=== PATIENT | female | born 1985 | race Asian ===

== ENCOUNTER 2018-08-25 11:56 | Inpatient (IN) | payer OTHER ==
[~2018-08-25] VITALS: Ht 144.8 cm; Wt 50.8 kg
[2018-08-25 12:00] VITALS: BP 84/53
--- NOTE | 2018-08-25 12:07 | NUR ---
pt amb to er bed 3 w/o asst
[2018-08-25] MEDS ORDERED: PREN-380 PO (12:13)
--- NOTE | 2018-08-25 12:13 | NUR ---
er at bedside
--- NOTE | 2018-08-25 12:21 | NUR ---
PT AMBULATED TO RESTROOM AND BACK TO [facility] WITH STEADY GAIT. UNABLE TO PROVIDE URINE SPECIMEN AT THIS TIME.
--- NOTE | 2018-08-25 12:28 | NUR ---
BIB FAMILY C/O HEAVY BRIGHT RED VAGINAL BLEEDING X THIS AM PT HAS USED 2 PADS TODAY. PT STS APPROX 12-13 WEEKS GESTATION. FAMILY STS "A BABY CAME OUT, LOOKED LIKE TWO INCHES." G2, P0, TAB1, SAB 0. LMP 05/19/18. PT A&OX4, BREATHING EVEN AND UNLABORED, LUNG SOUNDS CTAB, NSR ON MONITOR, SKIN PALE, WARM, AND DRY. C/O BILAT LOWER QUADRANT ABD PAIN, "NOT BAD THIS MORNING."
--- NOTE | 2018-08-25 12:28 | NUR ---
ULTRASOUND AT BEDSIDE.
--- NOTE | 2018-08-25 12:42 | NUR ---
LAB AT BEDSIDE TO DRAW BLOOD.
[2018-08-25 13:15] LABS: HEMATOCRIT 38.2 % (36-48); HEMOGLOBIN 12.4 g/dL (12.0-16.0); MEAN CORPUSCULAR HEMOGLOBIN 29 pg (27-31); MEAN CORPUSCULAR HGB CONC 33 g/dL (33-37); MEAN CORPUSCULAR VOLUME 89.3 fL (80-94); PLATELET COUNT (AUTO) 394 K/uL (140-450); RED BLOOD CELL COUNT(AUTO) 4.28 MIL/uL (4.20-5.40); RED CELL DISTRIBUTION WIDTH 13.5 % (11.6-13.7)
--- NOTE | 2018-08-25 13:24 | NUR ---
PT ENDORSED TO MARY OWUSU
--- NOTE | 2018-08-25 13:30 | NUR ---
ASSUMED CARE OF PATIENT. PT LYING ON GURNEY, DENIES DIZZINESS/LIGHTHEADEDNESS. PATIENT WEARING SANITARY PAD FROM AN HOUR AGO, NOTED WITH SCANT AMOUNT OF BLOOD. LUNGS CTAB, RESPIRATIONS EVEN AND UNLABORED. PT UPDATED REGRADING POC.
[2018-08-25 13:35] LABS: LYMPHOCYTES % (MANUAL) 4 % (20-46); MONOCYTES % (MANUAL) 4 % (5-12)
--- NOTE | 2018-08-25 14:28 | NUR ---
PELVIC EXAM COMPLETED BY DR. GIL WITH FEMALE RN TAYLOR.
[2018-08-25] MEDS ORDERED: NACL 0.9% 1,000 ML IV ONE (14:35)
[2018-08-25] MEDS ORDERED: metroNIDAZOLE 500 MG/NS PREMIX 100 ML IV ONE (14:35)
--- NOTE | 2018-08-25 14:42 | NUR ---
xray at bedside
--- NOTE | 2018-08-25 15:05 | NUR ---
LAB AT BEDSIDE
--- NOTE | 2018-08-25 15:30 | NUR ---
PT LYING ON GURNEY, IN NO DISTRESS AT THIS TIME. UPDATED REGARDING POC. SCANT BLEEDING NOTED TO SANITARY PAD
[2018-08-25 15:33] LABS: ALBUMIN 2.9 g/dL (3.4-5.0); ANION GAP 12.6 (8-16); CARBON DIOXIDE 25.6 mmol/L (21-32); CREATININE 0.6 mg/dL (0.6-1.3); POTASSIUM 4.2 mmol/L (3.5-5.1); TOTAL BILIRUBIN 0.2 mg/dL (0.0-1.0)
[2018-08-25 15:38] LABS: APPEARANCE,URINE CLEAR (CLEAR); BILIRUBIN,URINE NEGATIVE (NEGATIVE); BLOOD, URINE 2+ (NEGATIVE); COLOR,URINE YELLOW (YELLOW); LEUKOCYTE ESTERASE ,URINE NEGATIVE (NEGATIVE); NITRITE, URINE NEGATIVE (NEGATIVE); PH,URINE 6.5 (5.0-9.0); UGLUCOSE NEGATIVE (NEGATIVE)
[2018-08-25 15:40] LABS: RBC,URINE 11-20 (MOD) /HPF (0-5); WBC,URINE 0-5 /HPF (0-5)
[2018-08-25] MEDS ORDERED: ACETAMINOPHEN 325 MG TAB PO PRN (16:05)
[2018-08-25] MEDS ORDERED: MORPHINE SULFATE 2 MG/ML SYR IVP PRN (16:05)
[2018-08-25] MEDS ORDERED: DOCUSATE SODIUM 100 MG GELCAP PO PRN (16:05)
[2018-08-25] MEDS ORDERED: HYDROcodone/APAP 7.5/325 MG 1 TAB PO PRN (16:05)
[2018-08-25] MEDS ORDERED: ONDANSETRON 4 MG/2 ML VIAL IM/IVP PRN (16:05)
[2018-08-25 16:44] LABS: BARBITURATE, URINE NEG. ng/ml (NEG <=200); BENZODIAZEPINE, URINE NEG. ng/mL (NEG <=200); CANNABINOID, URINE NEG. ng/mL (NEG <=50); COCAINE, URINE NEG. ng/mL (NEG <=300); OPIATE, URINE NEG. ng/mL (NEG <=2000); PHENCYCLIDINE SCREEN,URINE NEG. ng/mL (NEG <=25)
--- NOTE | 2018-08-25 16:50 | NUR ---
Patient will be admitted to care of [facility]. Admited to TELE. Will go to room 121B. Belongings list completed. Report to JULISA HERNANDEZ.
[2018-08-25 16:56] LABS: PHOSPHORUS 3.3 mg/dL (2.5-4.9); THYROID STIMULATING HORMONE 0.1 uIU/mL (0.34-3.74)
[2018-08-25 17:00] VITALS: BP 110/62
[2018-08-25] MEDS ORDERED: AZITHROMYCIN 500 MG in DEXTROSE 5% 250 ML IV SCH (17:00)
--- NOTE | 2018-08-25 17:00 | NUR ---
PATIENT ARRIVED UNIT VIA GURNEY ACCOMPANIED BY ER NURSE AND ARAM. PATIENT AOX4. DENIES PAIN AND SOB. ON ROOM AIR. SPEAK UZBEK ONLY AND ABLE TO COMPREHEND MINIMAL ESTONIAN. ABLE TO MAKE NEEDS KNOWN AND ABLE TO FOLLOW COMMAND. RESPIRATION EVEN AND UNLABORED. IV O RAC 18G, INTACT AND PATENT, NOT INFUSING AT THIS TIME. SKIN INTACT AND DRY. ABLE TO AMBULATE WITH STEADY GAIT. ORIENTED PATIENT TO THE ROOM, ON HOW TO USE THE BED CONTROL, TV, BATHROOM, AND CALL LIGHT. PATIENT VERBALIZED UNDERSTANDING. DISCUSSED PLAN OF CARE WITH PATIENT AND ARAM, BOTH VERBALIZED UNDERSTANDING. COLLECTED MRSA NARES SWAB AND CHECKED VITAL SIGNS; TEMP 98.7, BP 110/62, PULSE 93, SPO2 99 ON RA, RESPIRATION 20, DENIES PAIN. BED IN LOW POSITION, CALL LIGHT WITHIN REACH.
[2018-08-25] MEDS: NACL 0.9% 1,000 ML IV SCH (17:31)
--- NOTE | 2018-08-25 17:32 | NUR ---
PATIENT IS EATING DINNER ON BED. DENIES PAIN AND SOB. NO SIGNS OF DISTRESS NOTED. ARAM IS AT BEDSIDE.
[2018-08-25 19:19] LABS: HEMATOCRIT 36.5 % (36-48); HEMOGLOBIN 11.8 g/dL (12.0-16.0); MEAN CORPUSCULAR HEMOGLOBIN 29 pg (27-31); MEAN CORPUSCULAR HGB CONC 32 g/dL (33-37); MEAN CORPUSCULAR VOLUME 89.6 fL (80-94); PLATELET COUNT (AUTO) 380 K/uL (140-450); RED BLOOD CELL COUNT(AUTO) 4.07 MIL/uL (4.20-5.40); RED CELL DISTRIBUTION WIDTH 13.4 % (11.6-13.7); WHITE BLOOD COUNT (AUTO) 24.6 K/uL (4.8-10.8)
--- NOTE | 2018-08-25 19:40 | NUR ---
ENDORSED PATIENT TO ONLINE PROGRAM COORDINATOR NURSE AT BEDSIDE. PATIENT IS IN A STABLE CONDITION.
--- NOTE | 2018-08-25 19:41 | NUR ---
RECEIVED BEDSIDE REPORT FROM DAY SHIFT RN. PATIENT IN STABLE CONDITION WITH NO SIGNS OF DISTRESS ON RA. BED IN LOW POSITION AND CALL LIGHT WITHIN REACH, IV SITE CLEAN, DRY AND INTACT. WILL CONTINUE TO MONITOR.
[2018-08-25 20:00] VITALS: BP 90/52
[2018-08-25 20:46] LABS: LYMPHOCYTES % (MANUAL) 11 % (20-46); MONOCYTES % (MANUAL) 3 % (5-12)
[2018-08-25] MEDS ORDERED: metroNIDAZOLE 500 MG/NS PREMIX 100 ML IV SCH (21:00)
--- NOTE | 2018-08-25 21:00 | NUR ---
PATIENT IS REFUSING FLU SHOT, CHARGE NURSE NOTIFIED. OTHERWISE PATIENT IS RESTING AND SHOWING NO SIGNS OF DISTRESS ON RA. BED IS LOW AND CALL LIGHT IS WITH IN REACH. WILL CONTINUE TO MONITOR.
--- NOTE | 2018-08-25 23:15 | NUR ---
PAGED DR. DAYA PEREZ TO FOLLOW UP WITH PATIENT.
[2018-08-26] VITALS: BP 97/59
--- NOTE | 2018-08-26 | NUR ---
PT HAS BEEN MONITORING CLOSE NOT ACTIVE VAGINAL BLEEDING VERY LITTLE SCAN DENIES ANY PAIN , ON TELMETRY SR
--- NOTE | 2018-08-26 03:00 | NUR ---
PT SLEEPING WELLL AND IV ON RT AC INFUSING WELL NOT VAGINAL BLEEDING NOTED
[2018-08-26 04:00] VITALS: BP 83/47
[2018-08-26] MEDS: NACL 0.9% 1,000 ML IV SCH ×3 (04:39→22:16)
--- NOTE | 2018-08-26 04:42 | NUR ---
PT VOIDING WELL NOT VAGINAL BLEEDING NOTED REMAIN STABLE AT THIS TIME ON TELEMETRY SR
[2018-08-26 06:19] LABS: BASOPHILS # (AUTO) 0.1 K/uL (0.00-0.22); BASOPHILS % (AUTO) 0.5 % (0.0-2.0); EOSINOPHILS # (AUTO) 0.2 K/uL (0-0.4); EOSINOPHILS % (AUTO) 1.4 % (0.0-4.0); HEMATOCRIT 38.5 % (36-48); HEMOGLOBIN 12.5 g/dL (12.0-16.0); LYMPHOCYTES # (AUTO) 2.1 K/uL (2.5-16.5); LYMPHOCYTES % (AUTO) 13.7 % (20.5-51.1); MEAN CORPUSCULAR HEMOGLOBIN 29 pg (27-31); MEAN CORPUSCULAR HGB CONC 33 g/dL (33-37); MEAN CORPUSCULAR VOLUME 89.7 fL (80-94); MONOCYTES # (AUTO) 0.8 K/uL (0.8-1.0); MONOCYTES % (AUTO) 5.2 % (1.7-9.3); NEUTROPHILS # (AUTO) 12.2 K/uL (1.8-7.7); NEUTROPHILS % (AUTO) 79.2 % (42.2-75.2); PLATELET COUNT (AUTO) 401 K/uL (140-450); RED BLOOD CELL COUNT(AUTO) 4.29 MIL/uL (4.20-5.40); RED CELL DISTRIBUTION WIDTH 13.5 % (11.6-13.7); WHITE BLOOD COUNT (AUTO) 15.4 K/uL (4.8-10.8)
[2018-08-26 06:22] LABS: T4 (THYROXINE) 10.1 ug/dL (4.5-12.0)
[2018-08-26 06:38] LABS: ANION GAP 14.4 (8-16); CARBON DIOXIDE 25.1 mmol/L (21-32); CREATININE 0.6 mg/dL (0.6-1.3); MAGNESIUM 1.9 mg/dL (1.8-2.4); PHOSPHORUS 3.7 mg/dL (2.5-4.9); POTASSIUM 3.5 mmol/L (3.5-5.1)
--- NOTE | 2018-08-26 07:31 | NUR ---
RECEIVED BEDSIDE REPORT FROM ALIGNING INSPECTOR NURSE. PATIENT IN STABLE CONDITION. NO SOB OR ANY RESPIRATORY DISTRESS NOTED. PT WAS BREATHING EVEN AND UNLABORED. SKIN INTACT, WARM AND DRY. PT DENIED ANY PAIN OR DISCOMFORT. PT STATED VAGINAL BLEEDING A LITTLE BIT. BED IN LOW POSITION. PLACED CALL LIGHT WITHIN REACH AND ENCOURAGED PATIENT TO USE IT ANYTIME ASSISTANCE IS NEEDED. IV LOCATED IN RIGHT UPPER ARM, GAUGE 18. IV SITE CLEAN, DRY AND INTACT. WILL CONTINUE TO MONITOR.
--- NOTE | 2018-08-26 07:31 | NUR ---
PT HAS BEEN MO;NITORING CLOSE, NOT ACTIVE VAGINAL BLEEDING REMAIN STABLE IV ON RT AC INFUSING WELL PT IS ENDORSED TO DAYSHIFT FOR CONTINUITY OF CARE
[2018-08-26 08:00] VITALS: BP 100/59
--- NOTE | 2018-08-26 08:18 | NUR ---
PATIENT HAS BEEN SCREENED AND CATEGORIZED HIGH NUTRITION RISK. PATIENT WILL BE SEEN WITHIN 1-2 DAYS OF ADMISSION. 08/26/18-08/27/[address]
[2018-08-26] MEDS: LACTOBACILLUS RHAMNOSUS GG 1 EACH CAP PO SCH (09:18)
--- NOTE | 2018-08-26 10:05 | NUR ---
PT WAS IN THE BED. PT'S WAS NEXT TO PT. PT'S C/O ALARM FROM IV MACHINE. CHECKED PT'S IV SITE AND FLUSHED. IV SITE INTACT, PATENT, AND DRY. EXPLAINED PT'S AND PT NOT TO BEND ARM BECAUSE IT COULD BE A CAUSE OF BLOCKING IV LINE. PT AND VERBALIZED UNDERSTANDING.
[2018-08-26] MEDS ORDERED: NACL 0.9% 500 ML IV SCH (11:10)
[2018-08-26 12:00] VITALS: BP 94/67
[2018-08-26] MEDS: metroNIDAZOLE 500 MG/NS PREMIX 100 ML IV SCH ×2 (13:01→21:38)
--- NOTE | 2018-08-26 13:14 | NUR ---
08/26/18 RD INITIAL ASSESSMENT COMPLETED PLEASE REFER TO NUTRITION ASSESSMENT UNDER CARE ACTIVITY FOR ESTIMATED NUTRITIONAL NEEDS. 1. CONTINUE REGULAR DIET TOLERATED 2. RD TO FOLLOW-UP 5-7 DAYS, LOW RISK KENAN RIVERA RD
[2018-08-26 16:00] VITALS: BP 95/57
--- NOTE | 2018-08-26 19:15 | NUR ---
Received endorsement from AM shift RN; patient laying in bed, awake. Patient A/Ox4, ambulatory, speaks Laoatian. No SOB or distress noted, on room air. IV site on right arm, 18 gauge, intact, running IVF. Skin intact. Bed in the lowest position, call light within reach. Initial assessment done. Will continue to monitor.
--- NOTE | 2018-08-26 19:24 | NUR ---
ENDORSED PT TO DIGITAL WATCH ASSEMBLER NURSE. PATIENT IN STABLE CONDITION. ONLY LITTLE BLEEDING FROM VAGINA. IV RA 18 GAUGE PATENT AND INTACT.
--- NOTE | 2018-08-26 21:45 | NUR ---
Due meds given, no distress noted. Patient awake, using her cellphone.
--- NOTE | 2018-08-26 23:59 | NUR ---
Vitals taken, patient asleep, eyes closed, visible chest rise and fall noted.
[2018-08-27] VITALS: BP 98/58
[2018-08-27] MEDS: NACL 0.9% 1,000 ML IV SCH ×2 (00:15→09:00)
--- NOTE | 2018-08-27 01:43 | NUR ---
Rounds done, no distress noted. Patient asleep, eyes closed, visible chest rise and fall noted.
--- NOTE | 2018-08-27 03:02 | NUR ---
Frequent checks made, no distress noted.
[2018-08-27] MEDS: metroNIDAZOLE 500 MG/NS PREMIX 100 ML IV SCH (04:08)
--- NOTE | 2018-08-27 04:12 | NUR ---
Due med given, no distress noted.
--- NOTE | 2018-08-27 05:49 | NUR ---
Checks made, patient asleep, visible chest rise and fall noted.
--- NOTE | 2018-08-27 06:30 | NUR ---
Dr. Cochran went to assess the patient; told patient she may go home today.
[2018-08-27 06:36] LABS: CHLAMYDIA TRACHOMATIS AMP DNA Negative (Negative)
[2018-08-27 06:43] LABS: BASOPHILS # (AUTO) 0.1 K/uL (0.00-0.22); BASOPHILS % (AUTO) 0.7 % (0.0-2.0); EOSINOPHILS # (AUTO) 0.5 K/uL (0-0.4); EOSINOPHILS % (AUTO) 4.6 % (0.0-4.0); HEMOGLOBIN 11.5 g/dL (12.0-16.0); LYMPHOCYTES # (AUTO) 2.1 K/uL (2.5-16.5); LYMPHOCYTES % (AUTO) 21.2 % (20.5-51.1); MEAN CORPUSCULAR HEMOGLOBIN 30 pg (27-31); MEAN CORPUSCULAR HGB CONC 34 g/dL (33-37); MEAN CORPUSCULAR VOLUME 89.7 fL (80-94); MONOCYTES # (AUTO) 0.7 K/uL (0.8-1.0); MONOCYTES % (AUTO) 7.1 % (1.7-9.3); NEUTROPHILS # (AUTO) 6.7 K/uL (1.8-7.7); NEUTROPHILS % (AUTO) 66.4 % (42.2-75.2); PLATELET COUNT (AUTO) 364 K/uL (140-450); RED BLOOD CELL COUNT(AUTO) 3.79 MIL/uL (4.20-5.40); RED CELL DISTRIBUTION WIDTH 13.3 % (11.6-13.7); WHITE BLOOD COUNT (AUTO) 10.1 K/uL (4.8-10.8)
[2018-08-27 06:53] LABS: ANION GAP 11.4 (8-16); CARBON DIOXIDE 24.3 mmol/L (21-32); CREATININE 0.6 mg/dL (0.6-1.3); POTASSIUM 3.7 mmol/L (3.5-5.1)
[2018-08-27 07:07] LABS: MAGNESIUM 1.9 mg/dL (1.8-2.4); PHOSPHORUS 3.6 mg/dL (2.5-4.9)
--- NOTE | 2018-08-27 07:20 | NUR ---
Endorsed patient to AM shift RN; patient in stable condition.
--- NOTE | 2018-08-27 07:28 | NUR ---
RECEIVED BEDSIDE REPORT FROM POULTRY FEED SUPERVISOR RN. PT LYING IN BED, AOX4. RESPIRATIONS EVEN AND UNLABORED. LUNGS CTA. HEART RHYTHM REGULAR. ACTIVE BOWEL SOUNDS. IV SITE PATENT AND ASYMPTOMATIC, INFUSING IVF PER MD ORDERS. SKIN INTACT. AMBULATORY WITHOUT ASSIST. ALL SAFETY PRECAUTIONS IN PLACE, WILL CONTINUE TO MONITOR.
[2018-08-27 08:00] VITALS: BP 127/74
[2018-08-27] MEDS ORDERED: METR250T2 PO (09:18)
[2018-08-27] MEDS ORDERED: LACT1.4C PO (09:18)
[2018-08-27] MEDS ORDERED: AZIT250T3 PO (09:18)
[2018-08-27] MEDS: LACTOBACILLUS RHAMNOSUS GG 1 EACH CAP PO SCH (09:58)
--- NOTE | 2018-08-27 10:00 | NUR ---
SCHEDULED MEDICATIONS GIVEN. PER AT BEDSIDE, INFORMED HIM THAT PATIENT WILL BE READY FOR D/C AROUND NOONTIME OR 1300.
--- NOTE | 2018-08-27 12:50 | NUR ---
DISCHARGE PAPERWORK, INCLUDING INSTRUCTIONS TO F/U WITH PCP (APPOINTMENT PROVIDED), GIVEN TO PATIENT AND AT BEDSIDE. PATIENT PREFERS AT BEDSIDE TO TRANSLATE. NEW PRESCRIPTION/MEDICATION TEACHING AND MEDICATION RECONCILIATION TEACHING GIVEN TO PATIENT. VERBALIZED COMPLETE UNDERSTANDING. IV SITE REMOVED WITH MINIMAL BLOOD LOSS AND LUMEN COMPLETELY INTACT. ID BANDS REMOVED. ALL PERSONAL BELONGINGS ARE WITH PATIENT. PATIENT DISCHARGED WILL GO HOME WITH FAMILY MEMBER VIA PRIVATE VEHICLE.
--- NOTE | 2018-08-27 14:12 | NUR ---
GAVE CRITICAL BLOOD CULTURE RESULTS TO DR. LOPEZ.
== END 2018-08-27 12:50 | disposition home or self-care (01) | DRG 779 ==
LOC: MED 11:56 → MTU 16:05
PROVIDERS: ADMIT General Practice; ATTEND General Practice
DX: O03.87 Sepsis following complete or unspecified spontaneous abortion (principal); A41.9 Sepsis, unspecified organism; E87.1 Hypo-osmolality and hyponatremia; E44.0 Moderate protein-calorie malnutrition; O03.83 Metabolic disorder following complete or unspecified spontaneous abortion; Z68.24 Body mass index [BMI] 24.0-24.9, adult; Z88.1 Allergy status to other antibiotic agents
CPT/HCPCS: 36415; 71045; 76817; 80048; 80053; 80305; 81001; 82140; 82150; 83036; 83605; 83615; 83690; 83735; 83880; 84100; 84436; 84443; 84702; 85025; 85610; 85730; 86900; 86901; 87040; 87081; 87086; 87491; 93005; 96365; 99291; J0456; J3490; J7030; J7060; Q0092